=== PATIENT | female | born 1955 | race African-American/Black ===

== ENCOUNTER 2022-04-25 22:43 | Inpatient (IN) | payer OTHER, MEDICAID ==
[2022-04-25] MEDS ORDERED: Fentanyl 100 MCG/2 ML VIAL ONE (23:19)
[2022-04-26 00:46] LABS: ALT (SGPT) 15 U/L (8-55); AST (SGOT) 30 U/L (5-34); Albumin 3.6 g/dL (3.4-4.8); Alkaline Phosphatase 99 U/L (40-110); Anion Gap 15 mmol/L (10-20); BUN (Urea Nitrogen) 9 mg/dL (9.8-20.1); Calc. Creatinine Clearance 0 mL/min (70-130); Calcium 9.1 mg/dL (7.8-10.44); Carbon Dioxide 22 mmol/L (23-31); Chloride 104 mmol/L (98-107); Estimated GFR 89; Globulin 4.1 g/dL (2.4-3.5); Glucose 107 mg/dL (80-115); Lipase 25 U/L (8-78); Potassium 3.9 mmol/L (3.5-5.1); Protein, Total 7.7 g/dL (5.8-8.1); Sodium 137 mmol/L (136-145)
[2022-04-26 01:00] LABS: #Monocytes 0.5 10x3/uL (0.0-1.1); #Neutrophils 13.4 10x3/uL (1.5-8.4); %Basophils 0.3 % (0.0-2.0); %Eosinophils 0.2 % (0.0-6.0); %Lymphocytes 6.8 % (18.0-47.0); %Monocytes 3.1 % (0.0-10.0); %Neutrophils 89.1 % (40.0-75.0); Hemoglobin 6.3 g/dL (12.0-15.5); Mean Corpuscular Hemoglobin 18.7 pg (27.0-33.0); Mean Corpuscular Volume 66.8 fl (81.6-98.3); Mean Platelet Volume 10.1 fl (7.4-10.4); Platelet Count 286 10x3/uL (150-450); RBC Distribution Width 18.7 % (11.5-14.5); Red Blood Cell (RBC) Count 3.37 10x6/uL (3.90-5.03); White Blood Cell (WBC) Count 15.1 10x3/uL (3.5-10.5)
[2022-04-26 02:07] LABS: Bilirubin Neg (Negative); Blood, Urine 250 (Negative); Clarity Cloudy (Clear); Glucose, Urine (Dipstick) Normal (Negative); Ketone, Urine Negative (Negative); Leukocyte 500 (Negative); Nitrite Negative (Negative); Protein, Urine (Dipstick) 100 mg/dl (Neg-Trace); Urobilinogen Normal mg/dL (Less than 2)
[2022-04-26 02:21] LABS: Bacteria/HPF 3+ HPF (None Seen); Mucous/LPF None Seen LPF (<2+); RBC/HPF Greater than 50 HPF (0-3); WBC/HPF 21-50 HPF (0-3)
[2022-04-26] MEDS ORDERED: Guaifenesin DM 100-10/5 ML UDCUP PO PRN (03:24)
[2022-04-26] MEDS ORDERED: Senokot S 8.6-50 MG TAB PO PRN (03:24)
[2022-04-26] MEDS ORDERED: Calcium Carbonate 500 MG ChewTAB PO PRN (03:24)
[2022-04-26] MEDS ORDERED: Acetaminophen 500 MG TAB ONE (03:40)
[2022-04-26 04:13] VITALS: BMI 27.1
[2022-04-26] MEDS: Morphine 2 MG/ML VIAL SLOW IVP PRN ×4 (04:23→21:43)
[2022-04-26 04:30] LABS: SARS-CoV-2 NAA Rapid Test Not Detected (NotDetected)
[2022-04-26] MEDS ORDERED: Furosemide 20 MG/2 ML VIAL SLOW IVP SCH (04:30)
[2022-04-26] MEDS: HYDROcodone/Acetaminophen 5/325 mg Tablet PO PRN ×3 (05:23→19:38)
[2022-04-26 06:34] LABS: Bilirubin Neg (Negative); Blood, Urine 10 (Negative); Clarity Slightly Cloudy (Clear); Glucose, Urine (Dipstick) Normal (Negative); Ketone, Urine Negative (Negative); Leukocyte 500 (Negative); Nitrite Negative (Negative); Protein, Urine (Dipstick) 30 mg/dl (Neg-Trace); Urobilinogen Normal mg/dL (Less than 2)
[2022-04-26 06:45] LABS: Bacteria/HPF None Seen HPF (None Seen); RBC/HPF 0-3 HPF (0-3)
[2022-04-26] MEDS: Pantoprazole 40 MG VIAL IVP SCH ×2 (08:22→21:43)
[2022-04-26 08:37] LABS: Lactic Acid 2.4 mmol/L (0.5-2.2)
[2022-04-26 08:52] LABS: ALT (SGPT) 12 U/L (8-55); AST (SGOT) 25 U/L (5-34); Albumin 3.1 g/dL (3.4-4.8); Alkaline Phosphatase 75 U/L (40-110); Anion Gap 13 mmol/L (10-20); BUN (Urea Nitrogen) 9 mg/dL (9.8-20.1); Bilirubin, Total 2.3 mg/dL (0.2-1.2); Calc. Creatinine Clearance 90 mL/min (70-130); Calcium 8.5 mg/dL (7.8-10.44); Carbon Dioxide 22 mmol/L (23-31); Chloride 105 mmol/L (98-107); Estimated GFR 82; Globulin 3.4 g/dL (2.4-3.5); Glucose 117 mg/dL (80-115); Protein, Total 6.5 g/dL (5.8-8.1); Sodium 136 mmol/L (136-145)
[2022-04-26 09:21] LABS: MDiff Complete? YES
[2022-04-26 09:26] LABS: Band 9 % (5-11); Lymphocytes 5 % (21-51); Monocytes 4 % (0-10); Neutrophil 81 % (42-75); Reactive Lymphocytes 1 % (0-10)
[2022-04-26 09:34] LABS: Anisocytosis SLIGHT = 6-15 cells (100X) (0-5/hpf); Hypochromia MODERATE=16-30 cells (100X) (0-5/hpf)
[2022-04-26 09:48] LABS: Mean Corpuscular HGB CONC 28.6 g/dL (32.0-36.0); Mean Corpuscular Hemoglobin 19.4 pg (27.0-33.0); Mean Platelet Volume 10.3 fl (7.4-10.4); Platelet Count 226 10x3/uL (150-450); RBC Distribution Width 19.6 % (11.5-14.5); Red Blood Cell (RBC) Count 3.09 10x6/uL (3.90-5.03); White Blood Cell (WBC) Count 26.2 10x3/uL (3.5-10.5)
[2022-04-26] MEDS: metroNIDAZOLE 500 MG in Premix Bag 1 BAG IVPB SCH ×2 (10:13→19:21)
[2022-04-26] MEDS ORDERED: Iopamidol 300 61% 100 ML VIAL FS ONE (10:19)
[2022-04-26 13:45] LABS: Hemoglobin 5.7 g/dL (12.0-15.5); Mean Corpuscular HGB CONC 29.7 g/dL (32.0-36.0); Mean Corpuscular Hemoglobin 19.7 pg (27.0-33.0); Mean Corpuscular Volume 66.4 fl (81.6-98.3); Mean Platelet Volume 9.8 fl (7.4-10.4); Platelet Count 191 10x3/uL (150-450); RBC Distribution Width 19.7 % (11.5-14.5); Red Blood Cell (RBC) Count 2.89 10x6/uL (3.90-5.03); White Blood Cell (WBC) Count 24.1 10x3/uL (3.5-10.5)
[2022-04-26 13:48] LABS: MDiff Complete? YES
[2022-04-26] MEDS ORDERED: Furosemide 40 MG/4 ML VIAL IVP SCH (14:00)
[2022-04-26] MEDS: Acetaminophen 325 MG TAB PO PRN (15:16)
[2022-04-26] MEDS: Ondansetron PF 4 MG/2 ML Vial IVP PRN (15:17)
[2022-04-26 15:37] LABS: Band 12 % (5-11); Lymphocytes 12 % (21-51); Monocytes 4 % (0-10); Neutrophil 72 % (42-75); Nucleated RBC 1 % (0)
[2022-04-26 15:39] LABS: Anisocytosis SLIGHT = 6-15 cells (100X) (0-5/hpf); Hypochromia SLIGHT = 6-15 cells (100X) (0-5/hpf); Microcytosis SLIGHT = 6-15 cells (100X) (0-5/hpf)
[2022-04-26 15:40] LABS: Ovalocytes SLIGHT = 2-5 cells (100X) (0-1/hpf); Polychromasia SLIGHT = 2-3 cells (100X) (0-2/hpf); Target Cells SLIGHT = 2-5 cells (100X) (0-1/hpf)
[2022-04-26 15:42] LABS: Platelet Clumps SLIGHT; Platelet Morphology Comment Appears Adequate
[2022-04-26 20:23] LABS: Hemoglobin 7.8 g/dL (12.0-15.5); Mean Corpuscular HGB CONC 29.8 g/dL (32.0-36.0); Mean Corpuscular Hemoglobin 20.9 pg (27.0-33.0); Mean Corpuscular Volume 70.1 fl (81.6-98.3); Mean Platelet Volume 10.1 fl (7.4-10.4); Platelet Count 195 10x3/uL (150-450); RBC Distribution Width 22.2 % (11.5-14.5); Red Blood Cell (RBC) Count 3.74 10x6/uL (3.90-5.03); White Blood Cell (WBC) Count 26.4 10x3/uL (3.5-10.5)
[2022-04-26 20:30] LABS: INR-International Normal Ratio 1.3; Prothrombin Time 13.6 sec (9.5-12.1)
[2022-04-27] MEDS ORDERED: Melatonin 3 MG TAB PO SCH (00:30)
[2022-04-27] MEDS: Acetaminophen 325 MG TAB PO PRN (03:04)
[2022-04-27] MEDS: metroNIDAZOLE 500 MG in Premix Bag 1 BAG IVPB SCH (03:09)
[2022-04-27] MEDS: Ondansetron PF 4 MG/2 ML Vial IVP PRN ×2 (03:11→20:02)
[2022-04-27 04:39] LABS: ALT (SGPT) 15 U/L (8-55); AST (SGOT) 23 U/L (5-34); Alkaline Phosphatase 70 U/L (40-110); Anion Gap 10 mmol/L (10-20); BUN (Urea Nitrogen) 12 mg/dL (9.8-20.1); Bilirubin, Total 3.3 mg/dL (0.2-1.2); Calc. Creatinine Clearance 91 mL/min (70-130); Calcium 8.6 mg/dL (7.8-10.44); Carbon Dioxide 24 mmol/L (23-31); Chloride 101 mmol/L (98-107); Estimated GFR 83; Globulin 3.5 g/dL (2.4-3.5); Glucose 106 mg/dL (80-115); Potassium 3.6 mmol/L (3.5-5.1); Protein, Total 6.5 g/dL (5.8-8.1); Sodium 131 mmol/L (136-145)
[2022-04-27 04:42] LABS: Hemoglobin 8.2 g/dL (12.0-15.5); Mean Corpuscular HGB CONC 31.1 g/dL (32.0-36.0); Mean Corpuscular Hemoglobin 21.7 pg (27.0-33.0); Mean Corpuscular Volume 69.8 fl (81.6-98.3); Mean Platelet Volume 10.6 fl (7.4-10.4); Platelet Count 182 10x3/uL (150-450); RBC Distribution Width 22.6 % (11.5-14.5); Red Blood Cell (RBC) Count 3.78 10x6/uL (3.90-5.03); White Blood Cell (WBC) Count 26.2 10x3/uL (3.5-10.5)
[2022-04-27 05:37] LABS: MDiff Complete? YES
[2022-04-27 06:36] LABS: Band 13 % (5-11); Lymphocytes 5 % (21-51); Monocytes 5 % (0-10); Neutrophil 77 % (42-75)
[2022-04-27 06:37] LABS: Anisocytosis SLIGHT = 6-15 cells (100X) (0-5/hpf); Hypochromia MODERATE=16-30 cells (100X) (0-5/hpf)
[2022-04-27 06:38] LABS: Platelet Morphology Comment Appears Adequate; Polychromasia SLIGHT = 2-3 cells (100X) (0-2/hpf)
[2022-04-27] MEDS ORDERED: Meropenem 1 GM in Sodium Chloride 0.9% 100 ML IVPB SCH (08:00)
[2022-04-27] MEDS ORDERED: Vancomycin 1.5 GRAM/300 ML BAG 1.5 GM in Premix Bag 1 BAG IVPB SCH (08:00)
[2022-04-27] MEDS: Morphine 2 MG/ML VIAL SLOW IVP PRN (08:48)
[2022-04-27] MEDS: Pantoprazole 40 MG VIAL IVP SCH ×2 (08:49→20:04)
[2022-04-27] MEDS ORDERED: Vancomycin 1 GM in Premix Bag 1 BAG IVPB SCH (09:00)
[2022-04-27] MEDS ORDERED: Furosemide 40 MG/4 ML VIAL SLOW IVP SCH ×2 (09:00→17:00)
[2022-04-27] MEDS ORDERED: GoLYTELY 4,000 ml Bottle PO SCH (12:30)
[2022-04-27] MEDS: HYDROcodone/Acetaminophen 5/325 mg Tablet PO PRN ×2 (13:58→22:24)
[2022-04-27 16:07] LABS: Campy jejuni + coli by PCR Negative (Negative); STEC Shiga Toxin 1+2 Negative (Negative); Salmonella spp. by PCR Negative (Negative); Shigella spp + EIEC by PCR Negative (Negative)
[2022-04-27] MEDS ORDERED: Potassium Chloride 20 MEQ TAB PO SCH (17:00)
[2022-04-27] MEDS: Meropenem 1 GM in Sodium Chloride 0.9% 100 ML IVPB SCH ×2 (17:06→23:25)
[2022-04-27] MEDS: Vancomycin HCl 750 MG in Sodium Chloride 0.9% 250 ML 250 ML IVPB SCH (19:57)
[2022-04-28] MEDS: HYDROcodone/Acetaminophen 5/325 mg Tablet PO PRN ×3 (02:37→19:46)
[2022-04-28 04:58] LABS: Hemoglobin 8.5 g/dL (12.0-15.5); Mean Platelet Volume 10.3 fl (7.4-10.4); Platelet Count 193 10x3/uL (150-450); RBC Distribution Width 24.2 % (11.5-14.5); Red Blood Cell (RBC) Count 3.86 10x6/uL (3.90-5.03); White Blood Cell (WBC) Count 22.6 10x3/uL (3.5-10.5)
[2022-04-28 05:03] LABS: Anion Gap 12 mmol/L (10-20); BUN (Urea Nitrogen) 10 mg/dL (9.8-20.1); Calc. Creatinine Clearance 99 mL/min (70-130); Calcium 8.7 mg/dL (7.8-10.44); Carbon Dioxide 25 mmol/L (23-31); Chloride 102 mmol/L (98-107); Estimated GFR 92; Glucose 94 mg/dL (80-115); Potassium 3.4 mmol/L (3.5-5.1); Sodium 136 mmol/L (136-145)
[2022-04-28 05:37] LABS: MDiff Complete? YES
[2022-04-28 05:41] LABS: Band 2 % (5-11); Lymphocytes 6 % (21-51); Monocytes 2 % (0-10); Neutrophil 90 % (42-75)
[2022-04-28 05:42] LABS: Anisocytosis MODERATE=16-30 cells (100X) (0-5/hpf); Platelet Morphology Comment Appears Adequate; Polychromasia SLIGHT = 2-3 cells (100X) (0-2/hpf)
[2022-04-28] MEDS: Vancomycin HCl 750 MG in Sodium Chloride 0.9% 250 ML 250 ML IVPB SCH (07:04)
[2022-04-28] MEDS ORDERED: Meropenem 1 GM VIAL ONE (10:20)
[2022-04-28] MEDS: Morphine 2 MG/ML VIAL SLOW IVP PRN ×3 (10:26→21:40)
[2022-04-28] MEDS: Furosemide 40 MG/4 ML VIAL SLOW IVP SCH (10:28)
[2022-04-28] MEDS: Meropenem 1 GM in Sodium Chloride 0.9% 100 ML IVPB SCH ×3 (10:28→23:43)
[2022-04-28] MEDS: Pantoprazole 40 MG VIAL IVP SCH ×2 (10:28→21:44)
[2022-04-28] MEDS: Potassium Chloride 20 MEQ TAB PO SCH (10:28)
[2022-04-28] MEDS ORDERED: PROPOFOL 40 ML ONE (13:39)
[2022-04-28] MEDS ORDERED: Lidocaine 2% MPF 10 ML AMP (For Epidural Use) ONE (13:40)
[2022-04-28] MEDS ORDERED: Glycopyrrolate 0.2 MG/ML 5 ML SYRINGE ONE (14:23)
[2022-04-28] MEDS ORDERED: Fentanyl 100 MCG/2 ML VIAL ONE (14:59)
[2022-04-28] MEDS: Carvedilol 6.25 MG TAB PO SCH (16:58)
[2022-04-28] MEDS: Atorvastatin Calcium 40 MG TAB PO SCH (21:44)
[2022-04-28] MEDS: VANCOMYCIN 1.25 GM/250 ML BAG 1.25 GM in Premix Bag 1 BAG IVPB SCH (22:43)
[2022-04-29] MEDS: HYDROcodone/Acetaminophen 5/325 mg Tablet PO PRN (00:52)
[2022-04-29 04:32] LABS: #Basophils 0.1 10x3/uL (0.0-0.2); #Eosinphils 0.1 10x3/uL (0.0-0.5); #Monocytes 1.4 10x3/uL (0.0-1.1); #Neutrophils 13.9 10x3/uL (1.5-8.4); %Basophils 0.3 % (0.0-2.0); %Eosinophils 0.6 % (0.0-6.0); %Lymphocytes 15.3 % (18.0-47.0); %Monocytes 7.4 % (0.0-10.0); %Neutrophils 75.7 % (40.0-75.0); Hemoglobin 8.6 g/dL (12.0-15.5); Mean Corpuscular HGB CONC 30.2 g/dL (32.0-36.0); Mean Corpuscular Hemoglobin 21.9 pg (27.0-33.0); Mean Corpuscular Volume 72.7 fl (81.6-98.3); Mean Platelet Volume 9.8 fl (7.4-10.4); Platelet Count 203 10x3/uL (150-450); RBC Distribution Width 25.3 % (11.5-14.5); Red Blood Cell (RBC) Count 3.92 10x6/uL (3.90-5.03); White Blood Cell (WBC) Count 18.3 10x3/uL (3.5-10.5)
[2022-04-29 04:57] LABS: Anion Gap 13 mmol/L (10-20); BUN (Urea Nitrogen) 8 mg/dL (9.8-20.1); Calc. Creatinine Clearance 101 mL/min (70-130); Calcium 8.5 mg/dL (7.8-10.44); Carbon Dioxide 25 mmol/L (23-31); Cardiac Risk 3.9 (Less than 4.5); Chloride 100 mmol/L (98-107); Cholesterol 132 mg/dl (< 200 Desired); Estimated GFR 94; Glucose 98 mg/dL (80-115); HDL Cholesterol 34 mg/dL (>60 Neg Risk); LDL Cholesterol, Calculated 78 mg/dL; Magnesium 1.7 mg/dL (1.6-2.6); Potassium 3.3 mmol/L (3.5-5.1); Sodium 135 mmol/L (136-145); Triglycerides 102 mg/dL (Less than 150)
[2022-04-29] MEDS: Morphine 2 MG/ML VIAL SLOW IVP PRN ×4 (05:00→20:12)
[2022-04-29 05:13] LABS: Anisocytosis MODERATE=16-30 cells (100X) (0-5/hpf); Polychromasia SLIGHT = 2-3 cells (100X) (0-2/hpf)
[2022-04-29 05:14] LABS: Microcytosis SLIGHT = 6-15 cells (100X) (0-5/hpf); Platelet Morphology Comment Appears Adequate
[2022-04-29] MEDS: Potassium Chloride 20 MEQ TAB PO SCH (08:30)
[2022-04-29] MEDS ORDERED: Potassium Chloride 20 MEQ TAB PO SCH (10:00)
[2022-04-29] MEDS: Pantoprazole 40 MG VIAL IVP SCH ×2 (10:30→20:25)
[2022-04-29] MEDS: Furosemide 40 MG/4 ML VIAL SLOW IVP SCH (10:30)
[2022-04-29] MEDS: Carvedilol 6.25 MG TAB PO SCH ×2 (10:31→17:11)
[2022-04-29] MEDS: Meropenem 1 GM in Sodium Chloride 0.9% 100 ML IVPB SCH ×3 (10:31→23:35)
[2022-04-29] MEDS: VANCOMYCIN 1.25 GM/250 ML BAG 1.25 GM in Premix Bag 1 BAG IVPB SCH ×2 (10:49→20:23)
[2022-04-29] MEDS: Vancomycin HCl 750 MG in Sodium Chloride 0.9% 250 ML 250 ML IVPB SCH (12:30)
[2022-04-29] MEDS ORDERED: Sodium Chloride 0.9% 1,000 ML IV SCH (15:30)
[2022-04-29] MEDS: Sodium Chloride 0.9% 1,000 ML IV SCH (17:07)
[2022-04-29] MEDS: Atorvastatin Calcium 40 MG TAB PO SCH (20:24)
[2022-04-30] MEDS: HYDROcodone/Acetaminophen 5/325 mg Tablet PO PRN ×2 (00:17→20:45)
[2022-04-30 04:49] LABS: #Basophils 0.1 10x3/uL (0.0-0.2); #Eosinphils 0.2 10x3/uL (0.0-0.5); #Monocytes 1.5 10x3/uL (0.0-1.1); %Basophils 0.4 % (0.0-2.0); %Lymphocytes 17.1 % (18.0-47.0); %Monocytes 9.8 % (0.0-10.0); %Neutrophils 70.9 % (40.0-75.0); Hemoglobin 8.7 g/dL (12.0-15.5); Mean Corpuscular HGB CONC 29.9 g/dL (32.0-36.0); Mean Corpuscular Hemoglobin 21.9 pg (27.0-33.0); Mean Corpuscular Volume 73.1 fl (81.6-98.3); Platelet Count 195 10x3/uL (150-450); RBC Distribution Width 25.7 % (11.5-14.5); Red Blood Cell (RBC) Count 3.98 10x6/uL (3.90-5.03); White Blood Cell (WBC) Count 15.5 10x3/uL (3.5-10.5)
[2022-04-30 05:03] LABS: Anion Gap 12 mmol/L (10-20); BUN (Urea Nitrogen) 7 mg/dL (9.8-20.1); Calc. Creatinine Clearance 111 mL/min (70-130); Calcium 8.4 mg/dL (7.8-10.44); Carbon Dioxide 25 mmol/L (23-31); Chloride 101 mmol/L (98-107); Estimated GFR 96; Glucose 95 mg/dL (80-115); Magnesium 1.6 mg/dL (1.6-2.6); Potassium 3.5 mmol/L (3.5-5.1); Sodium 134 mmol/L (136-145)
[2022-04-30] MEDS: Sodium Chloride 0.9% 1,000 ML IV SCH ×2 (06:50→15:11)
[2022-04-30 08:39] LABS: Vancomycin, Trough 14.9 ug/mL
[2022-04-30] MEDS: Potassium Chloride 20 MEQ TAB PO SCH ×3 (09:00→22:59)
[2022-04-30] MEDS: Carvedilol 6.25 MG TAB PO SCH ×2 (09:59→17:25)
[2022-04-30] MEDS: Morphine 2 MG/ML VIAL SLOW IVP PRN ×2 (11:40→17:25)
[2022-04-30] MEDS: Meropenem 1 GM in Sodium Chloride 0.9% 100 ML IVPB SCH ×2 (11:41→17:25)
[2022-04-30] MEDS: Furosemide 40 MG/4 ML VIAL SLOW IVP SCH (11:42)
[2022-04-30] MEDS: Pantoprazole 40 MG VIAL IVP SCH ×2 (11:43→22:58)
[2022-04-30] MEDS: VANCOMYCIN 1.25 GM/250 ML BAG 1.25 GM in Premix Bag 1 BAG IVPB SCH ×2 (15:11→22:58)
[2022-04-30] MEDS: Atorvastatin Calcium 40 MG TAB PO SCH (20:45)
[2022-05-01] MEDS: Meropenem 1 GM in Sodium Chloride 0.9% 100 ML IVPB SCH ×3 (01:06→17:13)
[2022-05-01] MEDS: HYDROcodone/Acetaminophen 5/325 mg Tablet PO PRN ×3 (01:29→20:44)
[2022-05-01 05:10] LABS: #Basophils 0.1 10x3/uL (0.0-0.2); #Eosinphils 0.2 10x3/uL (0.0-0.5); #Monocytes 1.5 10x3/uL (0.0-1.1); #Neutrophils 8.7 10x3/uL (1.5-8.4); %Basophils 0.5 % (0.0-2.0); %Eosinophils 1.7 % (0.0-6.0); %Lymphocytes 21.6 % (18.0-47.0); %Monocytes 11.3 % (0.0-10.0); %Neutrophils 63.6 % (40.0-75.0); Mean Corpuscular HGB CONC 29.8 g/dL (32.0-36.0); Mean Corpuscular Hemoglobin 22.4 pg (27.0-33.0); Mean Corpuscular Volume 75.3 fl (81.6-98.3); Mean Platelet Volume 9.8 fl (7.4-10.4); Platelet Count 199 10x3/uL (150-450); RBC Distribution Width 26.9 % (11.5-14.5); Red Blood Cell (RBC) Count 4.01 10x6/uL (3.90-5.03); White Blood Cell (WBC) Count 13.6 10x3/uL (3.5-10.5)
[2022-05-01 05:32] LABS: Anion Gap 14 mmol/L (10-20); BUN (Urea Nitrogen) 7 mg/dL (9.8-20.1); Calc. Creatinine Clearance 115 mL/min (70-130); Calcium 8.5 mg/dL (7.8-10.44); Carbon Dioxide 22 mmol/L (23-31); Chloride 103 mmol/L (98-107); Estimated GFR 97; Glucose 84 mg/dL (80-115); Magnesium 1.6 mg/dL (1.6-2.6); Potassium 3.9 mmol/L (3.5-5.1); Sodium 135 mmol/L (136-145)
[2022-05-01 06:36] LABS: Anisocytosis SLIGHT = 6-15 cells (100X) (0-5/hpf); Hypochromia SLIGHT = 6-15 cells (100X) (0-5/hpf); Ovalocytes SLIGHT = 2-5 cells (100X) (0-1/hpf); Platelet Clumps SLIGHT; Platelet Morphology Comment Appears Adequate
[2022-05-01] MEDS: VANCOMYCIN 1.25 GM/250 ML BAG 1.25 GM in Premix Bag 1 BAG IVPB SCH ×2 (09:00→22:04)
[2022-05-01] MEDS: Sodium Chloride 0.9% 1,000 ML IV SCH ×2 (09:00→16:48)
[2022-05-01] MEDS: Pantoprazole 40 MG VIAL IVP SCH ×2 (09:01→20:41)
[2022-05-01] MEDS: Furosemide 40 MG/4 ML VIAL SLOW IVP SCH (09:01)
[2022-05-01] MEDS: Potassium Chloride 20 MEQ TAB PO SCH ×2 (09:01→20:40)
[2022-05-01] MEDS: Carvedilol 6.25 MG TAB PO SCH ×2 (09:01→16:48)
[2022-05-01] MEDS: Morphine 2 MG/ML VIAL SLOW IVP PRN ×3 (12:09→23:19)
[2022-05-01] MEDS ORDERED: Lidocaine 1% PF 5 ML VIAL ONE ×2 (13:06→14:33)
[2022-05-01] MEDS ORDERED: Sodium Bicarbonate 2.5 MEQ/5 ML VIAL ONE (13:06)
[2022-05-01] MEDS: Atorvastatin Calcium 40 MG TAB PO SCH (20:40)
[2022-05-01] MEDS: metroNIDAZOLE 500 MG in Premix Bag 1 BAG IVPB SCH (20:40)
[2022-05-01 21:03] LABS: Vancomycin, Trough 8.6 ug/mL
[2022-05-02] MEDS: Meropenem 1 GM in Sodium Chloride 0.9% 100 ML IVPB SCH ×3 (00:40→17:34)
[2022-05-02] MEDS: metroNIDAZOLE 500 MG in Premix Bag 1 BAG IVPB SCH ×3 (03:08→17:34)
[2022-05-02 05:40] LABS: Lactic Acid 1.1 mmol/L (0.5-2.2)
[2022-05-02 05:43] LABS: Anion Gap 11 mmol/L (10-20); BUN (Urea Nitrogen) 6 mg/dL (9.8-20.1); Calc. Creatinine Clearance 121 mL/min (70-130); Calcium 8.7 mg/dL (7.8-10.44); Carbon Dioxide 27 mmol/L (23-31); Chloride 101 mmol/L (98-107); Estimated GFR 98; Glucose 82 mg/dL (80-115); Potassium 3.9 mmol/L (3.5-5.1); Sodium 135 mmol/L (136-145)
[2022-05-02 06:13] LABS: #Basophils 0.1 10x3/uL (0.0-0.2); #Eosinphils 0.2 10x3/uL (0.0-0.5); #Neutrophils 5.6 10x3/uL (1.5-8.4); %Basophils 0.5 % (0.0-2.0); %Eosinophils 2.5 % (0.0-6.0); %Lymphocytes 26.6 % (18.0-47.0); %Monocytes 10.3 % (0.0-10.0); %Neutrophils 58.8 % (40.0-75.0); Hemoglobin 8.8 g/dL (12.0-15.5); Mean Corpuscular Hemoglobin 21.9 pg (27.0-33.0); Mean Corpuscular Volume 73.1 fl (81.6-98.3); Mean Platelet Volume 10.9 fl (7.4-10.4); Platelet Count 233 10x3/uL (150-450); RBC Distribution Width 26.9 % (11.5-14.5); Red Blood Cell (RBC) Count 4.01 10x6/uL (3.90-5.03); White Blood Cell (WBC) Count 9.6 10x3/uL (3.5-10.5)
[2022-05-02 06:48] LABS: Anisocytosis SLIGHT = 6-15 cells (100X) (0-5/hpf); Hypochromia SLIGHT = 6-15 cells (100X) (0-5/hpf); Macrocytosis SLIGHT = 6-15 cells (100X) (0-5/hpf); Microcytosis SLIGHT = 6-15 cells (100X) (0-5/hpf); Platelet Morphology Comment Appears Adequate
[2022-05-02] MEDS: Furosemide 40 MG/4 ML VIAL SLOW IVP SCH (08:40)
[2022-05-02] MEDS: Pantoprazole 40 MG VIAL IVP SCH ×2 (08:40→21:42)
[2022-05-02] MEDS: Vancomycin 1.5 GRAM/300 ML BAG 1.5 GM in Premix Bag 1 BAG IVPB SCH ×2 (08:41→21:42)
[2022-05-02] MEDS: Potassium Chloride 20 MEQ TAB PO SCH ×2 (08:41→21:40)
[2022-05-02] MEDS: Carvedilol 6.25 MG TAB PO SCH ×2 (08:41→17:34)
[2022-05-02] MEDS: Sodium Chloride 0.9% 1,000 ML IV SCH (08:42)
[2022-05-02] MEDS: Morphine 2 MG/ML VIAL SLOW IVP PRN (17:33)
[2022-05-02] MEDS: HYDROcodone/Acetaminophen 5/325 mg Tablet PO PRN (20:34)
[2022-05-02] MEDS: Atorvastatin Calcium 40 MG TAB PO SCH (21:40)
[2022-05-03] MEDS: Meropenem 1 GM in Sodium Chloride 0.9% 100 ML IVPB SCH ×3 (00:52→16:02)
[2022-05-03] MEDS: Morphine 2 MG/ML VIAL SLOW IVP PRN ×3 (01:04→23:41)
[2022-05-03] MEDS: Acetaminophen 325 MG TAB PO PRN (02:58)
[2022-05-03] MEDS: metroNIDAZOLE 500 MG in Premix Bag 1 BAG IVPB SCH ×3 (03:09→16:02)
[2022-05-03] MEDS: Sodium Chloride 0.9% 1,000 ML IV SCH ×2 (06:02→10:46)
[2022-05-03] MEDS: HYDROcodone/Acetaminophen 5/325 mg Tablet PO PRN (08:48)
[2022-05-03] MEDS: Furosemide 40 MG/4 ML VIAL SLOW IVP SCH (08:48)
[2022-05-03] MEDS: Potassium Chloride 20 MEQ TAB PO SCH ×2 (08:48→21:56)
[2022-05-03] MEDS: Pantoprazole 40 MG VIAL IVP SCH ×2 (08:48→21:30)
[2022-05-03] MEDS: Vancomycin 1.5 GRAM/300 ML BAG 1.5 GM in Premix Bag 1 BAG IVPB SCH ×2 (08:49→21:53)
[2022-05-03] MEDS: Carvedilol 6.25 MG TAB PO SCH ×2 (08:49→16:02)
[2022-05-03] MEDS ORDERED: Meropenem 1 GM VIAL ONE (08:50)
[2022-05-03 10:33] LABS: #Basophils 0.1 10x3/uL (0.0-0.2); #Eosinphils 0.3 10x3/uL (0.0-0.5); #Monocytes 0.8 10x3/uL (0.0-1.1); #Neutrophils 3.8 10x3/uL (1.5-8.4); %Basophils 0.7 % (0.0-2.0); %Eosinophils 3.8 % (0.0-6.0); %Lymphocytes 32.1 % (18.0-47.0); %Monocytes 10.3 % (0.0-10.0); %Neutrophils 52.1 % (40.0-75.0); Hemoglobin 9.1 g/dL (12.0-15.5); Mean Corpuscular HGB CONC 29.3 g/dL (32.0-36.0); Mean Corpuscular Hemoglobin 21.9 pg (27.0-33.0); Mean Corpuscular Volume 74.8 fl (81.6-98.3); Mean Platelet Volume 10.2 fl (7.4-10.4); Platelet Count 273 10x3/uL (150-450); RBC Distribution Width 26.9 % (11.5-14.5); Red Blood Cell (RBC) Count 4.16 10x6/uL (3.90-5.03); White Blood Cell (WBC) Count 7.3 10x3/uL (3.5-10.5)
[2022-05-03 10:35] LABS: ALT (SGPT) 9 U/L (8-55); AST (SGOT) 22 U/L (5-34); Albumin 3.1 g/dL (3.4-4.8); Alkaline Phosphatase 70 U/L (40-110); Anion Gap 16 mmol/L (10-20); BUN (Urea Nitrogen) 4 mg/dL (9.8-20.1); Bilirubin, Total 0.6 mg/dL (0.2-1.2); Calc. Creatinine Clearance 104 mL/min (70-130); Calcium 8.8 mg/dL (7.8-10.44); Carbon Dioxide 23 mmol/L (23-31); Chloride 102 mmol/L (98-107); Estimated GFR 95; Globulin 3.5 g/dL (2.4-3.5); Glucose 115 mg/dL (80-115); Magnesium 1.6 mg/dL (1.6-2.6); Protein, Total 6.6 g/dL (5.8-8.1); Sodium 138 mmol/L (136-145)
[2022-05-03 12:18] LABS: Hemoglobin A1c 4.8 % (4.0-6.0)
[2022-05-03] MEDS: Atorvastatin Calcium 40 MG TAB PO SCH (21:56)
[2022-05-04] MEDS: Meropenem 1 GM in Sodium Chloride 0.9% 100 ML IVPB SCH ×3 (01:31→16:50)
[2022-05-04] MEDS: Acetaminophen 325 MG TAB PO PRN (01:31)
[2022-05-04] MEDS: metroNIDAZOLE 500 MG in Premix Bag 1 BAG IVPB SCH ×3 (02:29→16:51)
[2022-05-04 06:10] LABS: #Eosinphils 0.3 10x3/uL (0.0-0.5); #Monocytes 0.8 10x3/uL (0.0-1.1); #Neutrophils 5.8 10x3/uL (1.5-8.4); %Basophils 0.4 % (0.0-2.0); %Lymphocytes 24.8 % (18.0-47.0); %Monocytes 8.7 % (0.0-10.0); %Neutrophils 62.3 % (40.0-75.0); Hemoglobin 8.5 g/dL (12.0-15.5); Mean Corpuscular HGB CONC 30.5 g/dL (32.0-36.0); Mean Corpuscular Hemoglobin 22.3 pg (27.0-33.0); Platelet Count 262 10x3/uL (150-450); RBC Distribution Width 26.6 % (11.5-14.5); Red Blood Cell (RBC) Count 3.82 10x6/uL (3.90-5.03); White Blood Cell (WBC) Count 9.3 10x3/uL (3.5-10.5)
[2022-05-04 06:29] LABS: ALT (SGPT) 9 U/L (8-55); AST (SGOT) 23 U/L (5-34); Albumin 2.8 g/dL (3.4-4.8); Alkaline Phosphatase 68 U/L (40-110); Anion Gap 13 mmol/L (10-20); BUN (Urea Nitrogen) 5 mg/dL (9.8-20.1); Bilirubin, Total 0.5 mg/dL (0.2-1.2); Calc. Creatinine Clearance 106 mL/min (70-130); Calcium 8.5 mg/dL (7.8-10.44); Carbon Dioxide 25 mmol/L (23-31); Chloride 104 mmol/L (98-107); Estimated GFR 95; Globulin 3.2 g/dL (2.4-3.5); Glucose 81 mg/dL (80-115); Magnesium 1.6 mg/dL (1.6-2.6); Potassium 3.5 mmol/L (3.5-5.1); Sodium 138 mmol/L (136-145)
[2022-05-04] MEDS: Sodium Chloride 0.9% 1,000 ML IV SCH (07:23)
[2022-05-04] MEDS: Pantoprazole 40 MG VIAL IVP SCH ×2 (08:21→21:18)
[2022-05-04] MEDS: Furosemide 40 MG/4 ML VIAL SLOW IVP SCH (08:21)
[2022-05-04] MEDS: Vancomycin 1.5 GRAM/300 ML BAG 1.5 GM in Premix Bag 1 BAG IVPB SCH ×2 (08:22→21:18)
[2022-05-04] MEDS: Potassium Chloride 20 MEQ TAB PO SCH ×2 (08:22→21:17)
[2022-05-04] MEDS: Carvedilol 6.25 MG TAB PO SCH ×2 (08:22→16:50)
[2022-05-04] MEDS: HYDROcodone/Acetaminophen 5/325 mg Tablet PO PRN ×3 (08:22→21:22)
[2022-05-04 08:26] LABS: Anisocytosis MODERATE=16-30 cells (100X) (0-5/hpf); Macrocytosis SLIGHT = 6-15 cells (100X) (0-5/hpf); Microcytosis MODERATE=15-30 cells (100X) (0-5/hpf); Polychromasia SLIGHT = 2-3 cells (100X) (0-2/hpf)
[2022-05-04 08:27] LABS: Hypochromia SLIGHT = 6-15 cells (100X) (0-5/hpf)
[2022-05-04 08:28] LABS: Ovalocytes SLIGHT = 2-5 cells (100X) (0-1/hpf); Platelet Morphology Comment Appears Adequate
[2022-05-04] MEDS: Lidocaine 5% Patch TD SCH (09:56)
[2022-05-04] MEDS: Atorvastatin Calcium 40 MG TAB PO SCH (21:17)
[2022-05-04] MEDS: Transdermal Patch Removal LIDOCAINE TOP SCH (21:22)
[2022-05-05] MEDS: Morphine 2 MG/ML VIAL SLOW IVP PRN ×2 (00:07→04:18)
[2022-05-05] MEDS: Acetaminophen 325 MG TAB PO PRN (00:08)
[2022-05-05] MEDS: Meropenem 1 GM in Sodium Chloride 0.9% 100 ML IVPB SCH ×2 (00:13→09:22)
[2022-05-05] MEDS: Sodium Chloride 0.9% 1,000 ML IV SCH (01:55)
[2022-05-05] MEDS: metroNIDAZOLE 500 MG in Premix Bag 1 BAG IVPB SCH (02:34)
[2022-05-05 04:57] LABS: #Basophils 0.1 10x3/uL (0.0-0.2); #Eosinphils 0.3 10x3/uL (0.0-0.5); #Monocytes 0.7 10x3/uL (0.0-1.1); #Neutrophils 4.2 10x3/uL (1.5-8.4); %Basophils 0.9 % (0.0-2.0); %Eosinophils 3.8 % (0.0-6.0); %Lymphocytes 32.4 % (18.0-47.0); %Monocytes 8.3 % (0.0-10.0); Mean Corpuscular HGB CONC 30.5 g/dL (32.0-36.0); Mean Corpuscular Hemoglobin 22.4 pg (27.0-33.0); Mean Corpuscular Volume 73.4 fl (81.6-98.3); Mean Platelet Volume 9.8 fl (7.4-10.4); Platelet Count 297 10x3/uL (150-450); RBC Distribution Width 26.6 % (11.5-14.5); Red Blood Cell (RBC) Count 4.02 10x6/uL (3.90-5.03); White Blood Cell (WBC) Count 7.8 10x3/uL (3.5-10.5)
[2022-05-05 05:09] LABS: ALT (SGPT) 12 U/L (8-55); AST (SGOT) 32 U/L (5-34); Alkaline Phosphatase 64 U/L (40-110); Anion Gap 12 mmol/L (10-20); BUN (Urea Nitrogen) 5 mg/dL (9.8-20.1); Bilirubin, Total 0.4 mg/dL (0.2-1.2); Calc. Creatinine Clearance 109 mL/min (70-130); Calcium 8.8 mg/dL (7.8-10.44); Carbon Dioxide 25 mmol/L (23-31); Chloride 105 mmol/L (98-107); Estimated GFR 96; Globulin 3.5 g/dL (2.4-3.5); Glucose 98 mg/dL (80-115); Magnesium 1.6 mg/dL (1.6-2.6); Potassium 3.9 mmol/L (3.5-5.1); Protein, Total 6.5 g/dL (5.8-8.1); Sodium 138 mmol/L (136-145)
[2022-05-05] MEDS: Lidocaine 5% Patch TD SCH (08:48)
[2022-05-05] MEDS: Pantoprazole 40 MG VIAL IVP SCH ×2 (08:48→21:14)
[2022-05-05] MEDS: traMADol HCl 50 MG TAB PO PRN ×2 (08:48→21:19)
[2022-05-05] MEDS: Carvedilol 6.25 MG TAB PO SCH ×2 (08:48→16:36)
[2022-05-05] MEDS: Potassium Chloride 20 MEQ TAB PO SCH ×2 (08:49→21:14)
[2022-05-05] MEDS: Atorvastatin Calcium 40 MG TAB PO SCH (21:14)
[2022-05-05] MEDS: Transdermal Patch Removal LIDOCAINE TOP SCH (21:15)
[2022-05-06] MEDS: Acetaminophen 325 MG TAB PO PRN (00:05)
[2022-05-06 05:06] LABS: ALT (SGPT) 10 U/L (8-55); AST (SGOT) 28 U/L (5-34); Albumin 2.9 g/dL (3.4-4.8); Alkaline Phosphatase 66 U/L (40-110); Anion Gap 13 mmol/L (10-20); BUN (Urea Nitrogen) 5 mg/dL (9.8-20.1); Bilirubin, Total 0.5 mg/dL (0.2-1.2); Calc. Creatinine Clearance 103 mL/min (70-130); Calcium 8.9 mg/dL (7.8-10.44); Carbon Dioxide 22 mmol/L (23-31); Chloride 107 mmol/L (98-107); Estimated GFR 94; Globulin 3.2 g/dL (2.4-3.5); Glucose 135 mg/dL (80-115); Magnesium 1.6 mg/dL (1.6-2.6); Potassium 4.2 mmol/L (3.5-5.1); Protein, Total 6.1 g/dL (5.8-8.1); Sodium 138 mmol/L (136-145)
[2022-05-06 05:22] LABS: Hemoglobin 8.9 g/dL (12.0-15.5); Mean Corpuscular HGB CONC 30.3 g/dL (32.0-36.0); Mean Corpuscular Hemoglobin 22.4 pg (27.0-33.0); Mean Corpuscular Volume 74.1 fl (81.6-98.3); Platelet Count 394 10x3/uL (150-450); RBC Distribution Width 27.3 % (11.5-14.5); Red Blood Cell (RBC) Count 3.97 10x6/uL (3.90-5.03); White Blood Cell (WBC) Count 7.7 10x3/uL (3.5-10.5)
[2022-05-06 05:23] LABS: #Basophils 0.1 10x3/uL (0.0-0.2); #Eosinphils 0.4 10x3/uL (0.0-0.5); #Monocytes 0.6 10x3/uL (0.0-1.1); #Neutrophils 3.7 10x3/uL (1.5-8.4); %Basophils 1.1 % (0.0-2.0); %Eosinophils 5.2 % (0.0-6.0); %Lymphocytes 36.5 % (18.0-47.0); %Neutrophils 48.8 % (40.0-75.0)
[2022-05-06] MEDS: traMADol HCl 50 MG TAB PO PRN ×3 (06:26→20:08)
[2022-05-06] MEDS: Pantoprazole 40 MG VIAL IVP SCH ×2 (08:56→20:08)
[2022-05-06] MEDS: Lidocaine 5% Patch TD SCH (08:56)
[2022-05-06] MEDS: Magnesium 2 GM/50 ML(in water) 2 GM in Premix Bag 1 BAG IVPB SCH ×2 (08:56→09:22)
[2022-05-06] MEDS: Potassium Chloride 20 MEQ TAB PO SCH ×2 (08:57→20:08)
[2022-05-06] MEDS: Carvedilol 6.25 MG TAB PO SCH ×2 (08:57→16:39)
[2022-05-06] MEDS: Furosemide 40 MG TAB PO SCH (08:57)
[2022-05-06 09:01] LABS: Vancomycin, Trough 6.7 ug/mL
[2022-05-06] MEDS: Atorvastatin Calcium 40 MG TAB PO SCH (20:10)
[2022-05-06] MEDS: Transdermal Patch Removal LIDOCAINE TOP SCH (20:15)
[2022-05-07] MEDS: traMADol HCl 50 MG TAB PO PRN ×2 (04:47→09:53)
[2022-05-07 05:46] LABS: #Basophils 0.1 10x3/uL (0.0-0.2); #Eosinphils 0.4 10x3/uL (0.0-0.5); #Monocytes 0.5 10x3/uL (0.0-1.1); %Basophils 0.9 % (0.0-2.0); %Eosinophils 5.5 % (0.0-6.0); %Lymphocytes 34.3 % (18.0-47.0); %Neutrophils 51.9 % (40.0-75.0); Hemoglobin 9.1 g/dL (12.0-15.5); Mean Corpuscular HGB CONC 28.8 g/dL (32.0-36.0); Mean Corpuscular Hemoglobin 21.9 pg (27.0-33.0); Mean Platelet Volume 10.2 fl (7.4-10.4); Platelet Count 408 10x3/uL (150-450); RBC Distribution Width 27.4 % (11.5-14.5); Red Blood Cell (RBC) Count 4.16 10x6/uL (3.90-5.03); White Blood Cell (WBC) Count 7.7 10x3/uL (3.5-10.5)
[2022-05-07 05:55] LABS: ALT (SGPT) 14 U/L (8-55); AST (SGOT) 46 U/L (5-34); Albumin 3.2 g/dL (3.4-4.8); Alkaline Phosphatase 70 U/L (40-110); Anion Gap 13 mmol/L (10-20); BUN (Urea Nitrogen) 6 mg/dL (9.8-20.1); Bilirubin, Total 0.5 mg/dL (0.2-1.2); Calc. Creatinine Clearance 109 mL/min (70-130); Calcium 9.2 mg/dL (7.8-10.44); Carbon Dioxide 26 mmol/L (23-31); Chloride 103 mmol/L (98-107); Estimated GFR 96; Globulin 3.6 g/dL (2.4-3.5); Glucose 79 mg/dL (80-115); Magnesium 1.8 mg/dL (1.6-2.6); Potassium 4.6 mmol/L (3.5-5.1); Protein, Total 6.8 g/dL (5.8-8.1); Sodium 137 mmol/L (136-145)
[2022-05-07] MEDS ORDERED: Sodium Chloride 0.9% 500 ML IV SCH (08:45)
[2022-05-07] MEDS ORDERED: Lidocaine 5% Patch ONE (09:00)
[2022-05-07] MEDS ORDERED: Metoclopramide HCl 10 MG/2 ML VIAL IVP SCH (09:00)
[2022-05-07] MEDS: Potassium Chloride 20 MEQ TAB PO SCH (09:13)
[2022-05-07] MEDS: Carvedilol 6.25 MG TAB PO SCH (09:13)
[2022-05-07] MEDS: Furosemide 40 MG TAB PO SCH (09:13)
[2022-05-07] MEDS: Lidocaine 5% Patch TD SCH (09:14)
[2022-05-07] MEDS: Pantoprazole 40 MG VIAL IVP SCH (09:16)
[2022-05-07 15:40] VITALS: BP 135/79; TEMP 98.3
[2022-05-07] MEDS ORDERED: Melatonin 3 MG TAB PO SCH ×2 (21:00)
== END 2022-05-07 15:41 | disposition home or self-care (01) | DRG 871 ==
LOC: CSHERS 22:43 → CSHTELE 04-26 03:47
PROVIDERS: ADMIT Student in an Organized Health Care Education/Training Program; ATTEND Family Medicine
PROC: 30233N1 Transfusion of Nonautologous Red Blood Cells into Peripheral Vein, Percutaneous Approach (ICD-10-PCS; principal; 2022-04-26)
PROC: 3E03329 Introduction of Other Anti-infective into Peripheral Vein, Percutaneous Approach (ICD-10-PCS; 2022-04-26)
PROC: 0DB98ZX Excision of Duodenum, Via Natural or Artificial Opening Endoscopic, Diagnostic (ICD-10-PCS; 2022-04-28)
PROC: 0DBN8ZX Excision of Sigmoid Colon, Via Natural or Artificial Opening Endoscopic, Diagnostic (ICD-10-PCS; 2022-04-28)
PROC: 02HV33Z Insertion of Infusion Device into Superior Vena Cava, Percutaneous Approach (ICD-10-PCS; 2022-05-01)
PROC: B548ZZA Ultrasonography of Superior Vena Cava, Guidance (ICD-10-PCS; 2022-05-01)
PROC: B5181ZA Fluoroscopy of Superior Vena Cava using Low Osmolar Contrast, Guidance (ICD-10-PCS; 2022-05-01)
DX: A41.9 Sepsis, unspecified organism (principal); I50.33 Acute on chronic diastolic (congestive) heart failure; K62.5 Hemorrhage of anus and rectum; D62 Acute posthemorrhagic anemia; N39.0 Urinary tract infection, site not specified; K55.9 Vascular disorder of intestine, unspecified; A09 Infectious gastroenteritis and colitis, unspecified; E87.1 Hypo-osmolality and hyponatremia; J93.83 Other pneumothorax; K92.2 Gastrointestinal hemorrhage, unspecified; Z20.822 Contact with and (suspected) exposure to COVID-19; K62.89 Other specified diseases of anus and rectum; D63.1 Anemia in chronic kidney disease; E66.9 Obesity, unspecified; G47.33 Obstructive sleep apnea (adult) (pediatric); Z60.2 Problems related to living alone; K59.00 Constipation, unspecified; M25.511 Pain in right shoulder; R51.9 Headache, unspecified; I27.20 Pulmonary hypertension, unspecified; I34.0 Nonrheumatic mitral (valve) insufficiency; K64.8 Other hemorrhoids; I11.0 Hypertensive heart disease with heart failure; D50.9 Iron deficiency anemia, unspecified; Z90.5 Acquired absence of kidney; Z85.528 Personal history of other malignant neoplasm of kidney; Z90.710 Acquired absence of both cervix and uterus; Z90.49 Acquired absence of other specified parts of digestive tract
CPT/HCPCS: 36415; 36430; 36569; 71045; 71046; 74177; 76705; 80048; 80053; 80061; 80202; 81003; 81015; 83036; 83605; 83690; 83735; 83880; 84145; 84443; 85025; 85610; 86850; 86900; 86901; 87040; 87086; 87324; 87449; 87505; 88305; 93005; 93306; 94760; 96361; 96374; C1751; C9113; J1940; J1956; J2185; J2270; J2405; J2704; J2765; J3010; J3370; J3475; J3490; J7030; J7050; P9016; Q9967; U0002; U0003; U0005

== ENCOUNTER 2022-07-12 02:36 | Observation (INO) | payer OTHER ==
[2022-07-12] MEDS ORDERED: Ondansetron PF 4 MG/2 ML Vial ONE (07:16)
[2022-07-12] MEDS ORDERED: Morphine 4 MG/ML VIAL ONE (07:16)
[2022-07-12 07:59] LABS: ALT (SGPT) 14 U/L (8-55); AST (SGOT) 26 U/L (5-34); Albumin 3.2 g/dL (3.4-4.8); Alkaline Phosphatase 98 U/L (40-110); Anion Gap 14 mmol/L (10-20); BUN (Urea Nitrogen) 4 mg/dL (9.8-20.1); Bilirubin, Total 0.5 mg/dL (0.2-1.2); Calc. Creatinine Clearance 0 mL/min (70-130); Calcium 8.5 mg/dL (7.8-10.44); Carbon Dioxide 23 mmol/L (23-31); Chloride 107 mmol/L (98-107); Estimated GFR 95; Globulin 3.4 g/dL (2.4-3.5); Glucose 91 mg/dL (80-115); Lipase 13 U/L (8-78); Potassium 3.3 mmol/L (3.5-5.1); Protein, Total 6.6 g/dL (5.8-8.1); Sodium 141 mmol/L (136-145)
[2022-07-12 08:02] LABS: #Eosinphils 0.3 10x3/uL (0.0-0.5); #Monocytes 0.5 10x3/uL (0.0-1.1); #Neutrophils 4.2 10x3/uL (1.5-8.4); %Basophils 0.4 % (0.0-2.0); %Eosinophils 4.1 % (0.0-6.0); %Lymphocytes 26.5 % (18.0-47.0); %Monocytes 7.5 % (0.0-10.0); %Neutrophils 60.9 % (40.0-75.0); Hemoglobin 7.4 g/dL (12.0-15.5); Mean Corpuscular Hemoglobin 24.7 pg (27.0-33.0); Mean Corpuscular Volume 79.7 fl (81.6-98.3); Mean Platelet Volume 10.8 fl (7.4-10.4); Platelet Count 239 10x3/uL (150-450); RBC Distribution Width 19.7 % (11.5-14.5); White Blood Cell (WBC) Count 6.8 10x3/uL (3.5-10.5)
[2022-07-12 08:21] LABS: CKMB 1.6 ng/mL (0-6.6)
[2022-07-12 09:09] LABS: Hypochromia SLIGHT = 6-15 cells (100X) (0-5/hpf); Microcytosis MODERATE=15-30 cells (100X) (0-5/hpf)
[2022-07-12 09:10] LABS: Anisocytosis SLIGHT = 6-15 cells (100X) (0-5/hpf); Platelet Clumps MODERATE; Platelet Morphology Comment PLT clumps seen-ADEQ
[2022-07-12] MEDS ORDERED: Iopamidol 370 76% 100 ML VIAL ONE (09:38)
[2022-07-12] MEDS ORDERED: Senokot S 8.6-50 MG TAB PO PRN (09:51)
[2022-07-12] MEDS ORDERED: Ondansetron PF 4 MG/2 ML Vial IVP PRN (09:51)
[2022-07-12] MEDS ORDERED: Ondansetron ODT 4 MG TAB PO PRN (09:51)
[2022-07-12] MEDS ORDERED: Calcium Carbonate 500 MG ChewTAB PO PRN (09:51)
[2022-07-12 11:51] LABS: Iron 17 ug/dL (50-170); Iron Binding Capacity, Total 353 mcg/dL (265-497)
[2022-07-12 11:53] LABS: Magnesium 1.5 mg/dL (1.6-2.6)
[2022-07-12] MEDS ORDERED: Potassium Chloride 20 MEQ TAB PO SCH (12:15)
[2022-07-12] MEDS ORDERED: Magnesium Sulfate 4 GM in Sodium Chloride 0.9% 250 ML 250 ML IVPB SCH (12:15)
[2022-07-12] MEDS ORDERED: Furosemide 40 MG/4 ML VIAL SLOW IVP SCH (12:15)
[2022-07-12 12:43] LABS: INR-International Normal Ratio 1.1; PTT 24.7 sec (22.0-33.0); Prothrombin Time 11.4 sec (9.5-12.1)
[2022-07-12] MEDS: Magnesium 2 GM/50 ML(in water) 2 GM in Premix Bag 1 BAG IVPB SCH ×2 (12:45→14:37)
[2022-07-12] MEDS: Acetaminophen 325 MG TAB PO PRN ×2 (12:58→20:23)
[2022-07-12 13:03] VITALS: BMI 28.1
[2022-07-12 13:54] LABS: SARS-CoV-2 NAA Rapid Test Not Detected (NotDetected)
[2022-07-12 15:06] LABS: CKMB 1.8 ng/mL (0-6.6)
[2022-07-12] MEDS: Potassium Chloride 20 MEQ TAB PO SCH (17:38)
[2022-07-12] MEDS: Carvedilol 6.25 MG TAB PO SCH (17:38)
[2022-07-12] MEDS: Melatonin 3 MG TAB PO PRN (20:23)
[2022-07-13 06:30] LABS: Anion Gap 10 mmol/L (10-20); BUN (Urea Nitrogen) 9 mg/dL (9.8-20.1); CRP (Inflammatory) 1.72 mg/dL (= or < 0.5); Calc. Creatinine Clearance 97 mL/min (70-130); Calcium 8.3 mg/dL (7.8-10.44); Carbon Dioxide 27 mmol/L (23-31); Chloride 106 mmol/L (98-107); Estimated GFR 90; Glucose 93 mg/dL (80-115); Potassium 3.4 mmol/L (3.5-5.1); Sodium 140 mmol/L (136-145)
[2022-07-13 07:25] LABS: #Eosinphils 0.3 10x3/uL (0.0-0.5); #Monocytes 0.5 10x3/uL (0.0-1.1); #Neutrophils 2.6 10x3/uL (1.5-8.4); %Basophils 0.7 % (0.0-2.0); %Eosinophils 6.3 % (0.0-6.0); %Lymphocytes 34.7 % (18.0-47.0); %Neutrophils 48.1 % (40.0-75.0); Hemoglobin 7.2 g/dL (12.0-15.5); Mean Corpuscular HGB CONC 30.5 g/dL (32.0-36.0); Mean Corpuscular Hemoglobin 24.5 pg (27.0-33.0); Mean Corpuscular Volume 80.3 fl (81.6-98.3); Mean Platelet Volume 10.5 fl (7.4-10.4); Platelet Count 247 10x3/uL (150-450); Red Blood Cell (RBC) Count 2.94 10x6/uL (3.90-5.03); White Blood Cell (WBC) Count 5.4 10x3/uL (3.5-10.5)
[2022-07-13] MEDS: Cyanocobalamin (Vitamin B-12) 1,000 MCG TAB PO SCH (08:29)
[2022-07-13] MEDS: Folic Acid 1 MG TAB PO SCH (08:29)
[2022-07-13] MEDS: Carvedilol 6.25 MG TAB PO SCH ×2 (08:29→17:20)
[2022-07-13] MEDS: Potassium Chloride 20 MEQ TAB PO SCH ×2 (08:29→17:20)
[2022-07-13] MEDS: Furosemide 40 MG TAB PO SCH (08:29)
[2022-07-13] MEDS: Acetaminophen 325 MG TAB PO PRN (08:29)
[2022-07-13] MEDS: Multivit, Therapeutic 1 TAB PO SCH (08:29)
[2022-07-13] MEDS: Aspirin 81 mg Enteric Coated Tablet PO SCH (08:29)
[2022-07-13] MEDS ORDERED: oxyCODONE 5 MG TAB PO SCH (13:45)
[2022-07-13] MEDS: Acetaminophen 500 MG TAB PO SCH ×2 (15:43→20:32)
[2022-07-13] MEDS: Melatonin 3 MG TAB PO PRN (23:27)
[2022-07-14] MEDS ORDERED: HYDROcodone/Acetaminophen 5/325 mg Tablet PO SCH (06:15)
[2022-07-14 07:05] LABS: #Eosinphils 0.3 10x3/uL (0.0-0.5); #Monocytes 0.4 10x3/uL (0.0-1.1); #Neutrophils 2.2 10x3/uL (1.5-8.4); %Basophils 0.8 % (0.0-2.0); %Eosinophils 6.8 % (0.0-6.0); %Lymphocytes 39.2 % (18.0-47.0); %Monocytes 8.2 % (0.0-10.0); %Neutrophils 44.8 % (40.0-75.0); Hemoglobin 7.3 g/dL (12.0-15.5); Mean Corpuscular HGB CONC 29.9 g/dL (32.0-36.0); Mean Corpuscular Hemoglobin 23.9 pg (27.0-33.0); Mean Platelet Volume 10.5 fl (7.4-10.4); Platelet Count 289 10x3/uL (150-450); RBC Distribution Width 19.6 % (11.5-14.5); Red Blood Cell (RBC) Count 3.05 10x6/uL (3.90-5.03); White Blood Cell (WBC) Count 4.9 10x3/uL (3.5-10.5)
[2022-07-14 07:38] LABS: Anisocytosis SLIGHT = 6-15 cells (100X) (0-5/hpf); Hypochromia SLIGHT = 6-15 cells (100X) (0-5/hpf)
[2022-07-14 07:39] LABS: Anion Gap 11 mmol/L (10-20); BUN (Urea Nitrogen) 8 mg/dL (9.8-20.1); Calc. Creatinine Clearance 96 mL/min (70-130); Carbon Dioxide 28 mmol/L (23-31); Chloride 104 mmol/L (98-107); Estimated GFR 90; Glucose 89 mg/dL (80-115); Platelet Morphology Comment Appears Adequate; Potassium 4.3 mmol/L (3.5-5.1); Sodium 139 mmol/L (136-145)
[2022-07-14] MEDS: Acetaminophen 500 MG TAB PO SCH (09:01)
[2022-07-14] MEDS: Cyanocobalamin (Vitamin B-12) 1,000 MCG TAB PO SCH (09:01)
[2022-07-14] MEDS: Folic Acid 1 MG TAB PO SCH (09:01)
[2022-07-14] MEDS: Potassium Chloride 20 MEQ TAB PO SCH (09:01)
[2022-07-14] MEDS: Carvedilol 6.25 MG TAB PO SCH (09:01)
[2022-07-14] MEDS: Furosemide 40 MG TAB PO SCH (09:02)
[2022-07-14] MEDS: Multivit, Therapeutic 1 TAB PO SCH (09:02)
[2022-07-14] MEDS: Aspirin 81 mg Enteric Coated Tablet PO SCH (09:02)
[2022-07-14 11:55] VITALS: BP 104/59; TEMP 98.1
[2022-07-14] MEDS ORDERED: Ferrous Gluconate 324 MG TAB PO SCH (17:00)
== END 2022-07-14 13:21 | disposition home or self-care (01) ==
LOC: CSHERS 02:36 → CSHTELE 11:58
PROVIDERS: ADMIT Internal Medicine; ATTEND Hospitalist
DX: S99.912A Unspecified injury of left ankle, initial encounter (principal); R74.8 Abnormal levels of other serum enzymes; D50.9 Iron deficiency anemia, unspecified; K52.9 Noninfective gastroenteritis and colitis, unspecified; I11.0 Hypertensive heart disease with heart failure; I50.32 Chronic diastolic (congestive) heart failure; E78.5 Hyperlipidemia, unspecified; R63.4 Abnormal weight loss; E87.6 Hypokalemia; R07.9 Chest pain, unspecified; Z20.822 Contact with and (suspected) exposure to COVID-19; Z85.528 Personal history of other malignant neoplasm of kidney; Z79.899 Other long term (current) drug therapy; Z90.5 Acquired absence of kidney; W19.XXXA Unspecified fall, initial encounter
CPT/HCPCS: 71045; 71275; 73610; 74177; 80048 ×2; 80053; 82553; 82728; 83540; 83550; 83690; 83735; 84484 ×2; 85025 ×3; 85046; 85610; 85730; 86140; 86850; 86900; 86901; 93005; 94760 ×2; 96361; 96374; 96375; 97116; 99285; U0002; 36415; 96376; G0378; J1940; J2270; J2405; J3475; Q9967